=== PATIENT | female | born 1985 | race Asian ===

== ENCOUNTER 2017-04-23 13:07 | Emergency (ER) | payer SELFPAY ==
[~2017-04-23] VITALS: Ht 149.9 cm; Wt 91.5 kg
[~2017-04-23 13:07] MED LIST: ALBUTEROL SULF8.5 GM IH; AUGMENTIN875 MG PO; BACTRIM,SEPT1 TABLET PO; FLONASE16 G1 BOTH NARES; GUAIFENESIN600 M1 PO; KEFLEX500 MG PO; MOTRIN IB200 MG PO; MOTRIN400 MG PO; MOTRIN800 MG PO; NAPROSYN500 MG PO; NO MEDS; ZYRTEC10 M2 PO
[2017-04-23 14:28] LABS: HEMATOCRIT 46.8 % (36.0-46.0); MCH 27.9 PG (29.0-34.0); MCHC 33.5 G/DL (30.0-36.0); MCV 83.3 FL (83-99); MEAN PLAT.VOLUME 9.2 uM^3 (9.5-12.4); PLATELET COUNT 335 K/uL (156-360); RBC DIS.WIDTH-CV 12.5 % (11.8-14.6); RBC DIS.WIDTH-SD 37.5 % (39-53); RED BLOOD COUNT 5.62 M/uL (3.80-5.20); WHITE BLOOD COUNT 13.8 K/uL (4.1-10.2)
[2017-04-23 14:59] LABS: CHLORIDE 105 mEq/L (99-109); SODIUM 138 mEq/L (136-147)
[2017-04-23 15:01] LABS: GLUCOSE 87 mg/dL (70-99)
[2017-04-23 15:03] LABS: ANION GAP 9 MEQ/L (2-14); TOTAL BILIRUBIN 0.3 mg/dL (0.0-1.0)
[2017-04-23 15:05] LABS: ALKALINE PHOSPHATASE 81 IU/L (3-129); GFR ESTIMATE (CALCULATED) > 59 mL/min/
[2017-04-23 15:06] LABS: UREA NITROGEN (BUN) 8 mg/dL (9-23)
[2017-04-23 15:14] LABS: QUANTITATIVE HCG < 4.0 MIU/ML
[2017-04-23 15:20] LABS: ADD MIUA? NO; BILIRUBIN NEGATIVE; BLOOD NEGATIVE; COLOR STRAW ((YELLOW)); GLUCOSE (STRIP) NEGATIVE; KETONES NEGATIVE; LEUKOCYTES NEGATIVE; NITRITE NEGATIVE; PROTEIN (STRIP) NEGATIVE; SPECIFIC GRAVITY 1.009 (1.000-1.030); UCUL ADDED? NO; UROBILINOGEN 0.2 MG/DL (0.2-1.0)
[2017-04-23 15:56] VITALS: BP 140/80
== END 2017-04-23 17:07 | disposition left against medical advice (07) ==
LOC: EME 13:07
DX: R10.2 Pelvic and perineal pain (principal); M54.5 Low back pain; R11.2 Nausea with vomiting, unspecified; N64.4 Mastodynia; F17.200 Nicotine dependence, unspecified, uncomplicated
CPT/HCPCS: 80053; 81003; 84702; 85027; 99281; 99283; J1885